=== PATIENT | male | born 1965 ===

== ENCOUNTER 2017-12-31 05:30 | Day surgery (SDC) | payer OTHER ==
[2017-12-31] MEDS ORDERED: PERCOCET 5-3251 EACH PO (10:09)
== END 2017-12-31 15:00 | disposition home or self-care (01) ==
LOC: CIR.AMB 05:30
DX: K51.813 Other ulcerative colitis with fistula (principal); K62.4 Stenosis of anus and rectum; K62.89 Other specified diseases of anus and rectum